=== PATIENT | male | born 1990 | race Caucasian/White ===

== ENCOUNTER 2018-02-19 15:27 | Emergency (ER) | payer MEDICAID ==
--- NOTE | 2018-02-19 16:19 | EDPHY ---
H & P Smoking Status: Never smoked Time Seen by Provider: 02/19/18 15:51 HPI/ROS: CHIEF COMPLAINT: Dog bite right hand HISTORY OF PRESENT ILLNESS: 27-year-old male with out-of-date tetanus arrives via private vehicle states that he was walking with friend on a road somewhere between [facility] when a dog jumped out and bit him on the right hand and then proceeded to bite his friend and then ran away. He denies paresthesia. Denies musculoskeletal deficits. Denies head injury. Tetanus is up-to-date. The patient is unable provide me a consistent story of specifically what happened. He explains that an unknown dog spontaneously jumped out and bit him. He does not know the address where this to occurred. He did not speak with a dog recording artist. He is unsure whether the dog had tags on or not. PHYSICAL EXAM (Prior to examination, patient consented to physical exam, hands were washed and my usual and customary physical exam procedures followed) 1) GENERAL: Well-developed, well-nourished, alert and oriented. Appears to be in no acute distress. 2) HEAD: Normocephalic 3) HEENT: sclera anicteric 4) LUNGS: Breathing comfortably. 5) SKIN: On the right 5th metacarpal patient has a puncture wound with dried blood. He is tender to palpation in the 5th metacarpal same location. No signs of infection. Negative kanavel sign to the fingers. No lymphangitic streaking. Soft compartments 6) MUSCULOSKELETAL: No shortening no malrotation. 7) NEUROLOGIC: Full sensation. (Roxy,Yas Diana) Constitutional: Initial Vital Signs Temperature (C) 36.9 C 02/19/18 15:45 Heart Rate 76 02/19/18 15:45 Respiratory Rate 16 02/19/18 15:45 Blood Pressure 126/74 H 02/19/18 15:45 O2 Sat (%) 98 02/19/18 15:45 O2 Delivery Mode Room Air Allergies/Adverse Reactions: No Known Allergies Allergy (Verified 02/19/18 15:44) Home Medications: Medication Instructions Recorded Adderall 10 MG (*) 02/19/18 Amoxicillin/Clavulanate Pot 875 mg PO BID #14 tab 02/19/18 [Augmentin 875 mg tab] MDM/Departure - MDM Procedures: Patient's wounds were copiously irrigated by ER staff. They will be allowed to heal via secondary intention. (Yas Ramsey) Medications Given: Discontinued Medications Amoxicillin/Clavulanate Potassium (Augmentin 875mg) 875 mg PO EDNOW ONE PRN Reason: Protocol Stop: 02/19/18 16:34 Last Admin: 02/19/18 17:06 Dose: 875 mg Diphtheria/Tetanus/Acell Pertussis (Boostrix) 0.5 ml IM .ONCE ONE Stop: 02/19/18 16:34 Last Admin: 02/19/18 16:42 Dose: Not Given Rabies Immune Globulin (Imogam Rabies Ht 2ml) 1,400 unit IM .ONCE ONE Stop: 02/19/18 16:34 Last Admin: 02/19/18 16:40 Dose: Not Given Rabies Vaccine Human Diploid Cell (Rabavert) 2.5 unit IM .ONCE ONE Stop: 02/19/18 16:34 Last Admin: 02/19/18 16:41 Dose: Not Given ED Course/Re-evaluation: Patient is unable provide me an address for the incident occurred, he is unsure whether there the dog had tags on or not. He does not have an address that he can report to law enforcement to check on the status of this dog. In addition this was an unprovoked attack per the patient. Explained to the patient that if an address were obtained possibly the dog could be quarantine observed, however he is unable to provide me with an address or even and approximation.. Because of this, I recommended initiation of rabies post exposure prophylaxis. Indications risks benefits discussed with patient and he consents. This was subsequently ordered and at 4:40 p.m. informs me that he is now declining this stating that he has he believes he previously received rabies post exposure prophylaxis. I have explained the patient the fatality rate of rabies and that this cannot be ruled out and a stressed my recommendation of receiving post exposure prophylaxis. He continues to decline this. I believe him to have decision-making capacity. I provided usual customary wound precautions instructions. He is started on Augmentin. His tetanus has been updated. I saw this patient independently based on established practice protocols. Care of patient under supervision of secondary supervising physician Dr Richie Daniels with whom I discussed case. ( Roxy,D Diana) I did not see this patient while he was in the emergency department. However his care was discussed with the PA while the patient is in the department. I agree with treatment plan and management (Richie Daniels) - Depart Disposition: Home, Routine, Self-Care Clinical Impression: Dog bite of right hand Condition: Good Instructions: Animal Bite (ED) Additional Instructions: Return to the ER if you develop redness, swelling, discharge, warmth to the wound, red streaks going up your arm, or any other symptoms that concern you. I recommended you start rabies post exposure prophylaxis. You have declined this. Rabies is a fatal disease. If you change of mind you may return to the ER. Prescriptions: Amoxicillin/Clavulanate Pot [Augmentin 875 mg tab] 875 mg PO BID #14 tab Referrals: [facility],. [Clinic] - As per Instructions
[2018-02-19] MEDS ORDERED: RABIES IMMUNE GLOBULIN 300 UNIT/2 ML VIAL IM ONE (16:33)
[2018-02-19] MEDS ORDERED: RABIES VACC, HUMAN DIPLOID/PF 2.5 UNIT VIAL (RABAVERT) IM ONE (16:33)
[2018-02-19] MEDS ORDERED: AMOXICILLIN/CLAVULANATE POT 875/125 MG TAB PO ONE (16:33)
[2018-02-19] MEDS ORDERED: TDAP ADULT 0.5 ML INJ (BOOSTRIX) IM ONE (16:33)
[2018-02-21 16:19] VITALS: BP 133/75
[2018-02-21] MEDS: TDAP ADULT 0.5 ML INJ (BOOSTRIX) IM ONE ×2 (16:19→16:22)
== END 2018-02-19 17:17 | disposition home or self-care (01) ==
DX: S61.451A Open bite of right hand, initial encounter (principal); Z23 Encounter for immunization; W54.0XXA Bitten by dog, initial encounter; Y99.8 Other external cause status; Y93.01 Activity, walking, marching and hiking